=== PATIENT | male | born 1950 | race Caucasian/White ===

== ENCOUNTER 2018-12-30 07:03 | Day surgery (SDC) | payer MEDICARE, OTHER ==
[~2018-12-30] VITALS: Ht 182.9 cm; Wt 93.9 kg
[~2018-12-30 07:03] MED LIST: AMLO5CAP34 PO; ASPI81TA85 PO; ATOR40TA75 PO; IBUP80TA PO; NS 1,000 ML IV ONE; propofoL 200 MG/20 ML VIAL As Ordered ONE
--- NOTE | 2018-12-30 08:44 | ROOR ---
Patient Name: Aureliano Mcdonald Procedure Date: 12/30/2018 8:01 AM Date of : 1950 Age: 68 Room: [facility] Gender: Male Note Status: Finalized Procedure: Total Colonoscopy to Cecum + Cold Snare Polypectomy + Hemoclips Indications: High risk colon cancer surveillance: Personal history of colonic polyps, Last colonoscopy: 2008 Providers: Gilmer Shah MD Referring MD: QUINTON CASTELLANO JR, MD Requesting Provider: Medicines: Monitored Anesthesia Care Complications: No immediate complications. Procedure: Pre-Anesthesia Assessment: - The heart rate, respiratory rate, oxygen saturations, blood pressure, adequacy of pulmonary ventilation, and response to care were monitored throughout the procedure. The Colonoscope was introduced through the anus and advanced to the cecum, identified by appendiceal orifice and ileocecal valve. The colonoscopy was performed without difficulty. The patient tolerated the procedure well. The quality of the bowel preparation was excellent. Findings: The perianal and digital rectal examinations were normal. Non-bleeding internal hemorrhoids were found during retroflexion. The hemorrhoids were small and Grade I (internal hemorrhoids that do not prolapse). Two sessile polyps were found in the transverse colon. The polyps were medium in size. These polyps were removed with a cold snare. Resection and retrieval were complete. To prevent bleeding after the polypectomy, three hemostatic clips were successfully placed (MR conditional). There was no bleeding at the end of the procedure. The exam was otherwise without abnormality. Impression: - Non-bleeding internal hemorrhoids. - Two medium polyps in the transverse colon, removed with a cold snare. Resected and retrieved. Clips (MR conditional) were placed. - The examination was otherwise normal. - The exam was otherwise normal to the cecum. Recommendation: - Patient has a contact number available for emergencies. The signs and symptoms of potential delayed complications were discussed with the patient. Return to normal activities tomorrow. Written discharge instructions were provided to the patient. - Discharge patient to home. - Continue present medications. - Await pathology results. - Telephone GI clinic for pathology results in 1 week. - Repeat colonoscopy for surveillance based on pathology results. - Return to referring physician. - The findings and recommendations were discussed with the patient's family. Gilmer Shah MD Gilmer Shah MD 12/30/2018 8:43:56 AM Electronically signed by Gilmer Shah MD Number of Addenda: 0 Note Initiated On: 12/30/2018 8:01 AM Estimated Blood Loss: Estimated blood loss: none.
[2018-12-30 09:05] VITALS: BP 165/95
[2019-04-02] MEDS ORDERED: FISH1000 PO (08:44)
[2019-04-02] MEDS ORDERED: SILD100T PO (08:44)
== END 2018-12-30 09:29 | disposition home or self-care (01) ==
LOC: M OPP 07:03
PROVIDERS: ATTEND Internal Medicine Gastroenterology
DX: D12.3 Benign neoplasm of transverse colon (principal); K64.0 First degree hemorrhoids; Z86.010 Personal history of colon polyps

== ENCOUNTER → 2019-01-27 | Outpatient (CLI) | payer MEDICARE, OTHER ==
[~2019-01-27] MED LIST changes: +LIQUID POLIBAR PLUS 105% w/v 1900ML BTL As Ordered ONE; -NS 1,000 ML IV ONE; -propofoL 200 MG/20 ML VIAL As Ordered ONE
--- NOTE | 2019-02-11 10:41 | REP ---
Examination Requested: Barium and Air contrast Reason For Exam: History of colonic polyps The procedure was performed by PHIL Fleming, under the direct supervision of Dr. Pedroza. The images were reviewed with Dr. Pedroza. The wrapping machine operator film shows no organomegaly, or pathological masses. The intestinal gas pattern is unremarkable. Liquid barium and air were instilled into the colon and retrograde flow of the barium air mixture. The colon is normal in position and contour. There is a nonobstructed loop of the sigmoid colon that descends inferior to the rectum most likely into the left scrotum . Postradiation bulla is unremarkable throughout. There is free flow of contrast to the cecum. There is reflux into the terminal ileum. The colonic mucosal pattern is normal in course and caliber. There is no annular constricting lesion identified. There are no polypoid masses identified. There is a 20 2 x 4 mm small linear foreign body within the lumen of the transverse colon of unknown etiology. Correlation with an abdominal x-ray and 3-5 days may be considered for resolution of foreign body. Impression: 1. Nonobstructive hernia of a loop of sigmoid colon into the left scrotum. 2. 22 x 4 mm linear foreign body, follow up abdominal x-ray may be considered for resolution. 1.1 minutes of fluoroscopy time was utilized for this procedure. Some fluoroscopic images are performed with last image hold technology. These images require no additional radiation. Reviewed by Liberty Alcocer, PHIL 01/27/2019 03:43 P Electronically Signed by Viet Pedroza MD 02/11/2019 10:32 A
== END ==
LOC: M RAD 10:19
PROVIDERS: ATTEND Internal Medicine Gastroenterology
DX: K46.9 Unspecified abdominal hernia without obstruction or gangrene (principal); Z86.010 Personal history of colon polyps

== ENCOUNTER 2019-04-16 12:09 | Day surgery (SDC) | payer MEDICARE, OTHER ==
[~2019-04-16] VITALS: Ht 188 cm; Wt 95.3 kg
[~2019-04-16 12:09] MED LIST changes: +FISH1000 PO; -LIQUID POLIBAR PLUS 105% w/v 1900ML BTL As Ordered ONE; +LR 1,000 ML IV ONE; +SILD100T PO; +ceFAZolin SOD 2 GM in IV 1 EA IV ONE
[2019-04-16] MEDS ORDERED: BUPIVACAINE/EPIN 0.25% 30 ML VIAL As Ordered ONE (14:07)
[2019-04-16] MEDS ORDERED: MIDAZOLAM INJ 2 MG/2 ML VIAL (J2250) As Ordered ONE (14:18)
[2019-04-16] MEDS ORDERED: LIDOCAINE 2% INJ 100 MG/5 ML SDV (FOR ANES.) As Ordered ONE (14:18)
[2019-04-16] MEDS ORDERED: ROCURONIUM BROMIDE 50 MG/5 ML VIAL As Ordered ONE (14:18)
[2019-04-16] MEDS ORDERED: fentaNYL 250 MCG/5 ML INJECTION (J3010) As Ordered ONE (14:18)
[2019-04-16] MEDS ORDERED: propofoL 200 MG/20 ML VIAL As Ordered ONE (14:18)
[2019-04-16] MEDS ORDERED: LACRILUBE (AKWA TEARS) OPHTH OINT 3.5 GM As Ordered ONE (14:57)
[2019-04-16] MEDS ORDERED: LABETALOL HCL 100 MG/20 ML VIAL As Ordered ONE (15:37)
[2019-04-16] MEDS ORDERED: ONDANSETRON 4MG/2ML VIAL (J2405) As Ordered ONE (15:52)
[2019-04-16] MEDS ORDERED: dexameTHASONE 4 MG/ML 1ML VIAL (J1100) As Ordered ONE (15:53)
[2019-04-16] MEDS ORDERED: ACETAMINOPHEN 1000MG 100ML IV BTL (OFIRMEV) (J0131 PER 10MG) As Ordered ONE (15:53)
[2019-04-16] MEDS ORDERED: KETOROLAC 60 MG/2 ML VIAL (J1885) As Ordered ONE (15:53)
[2019-04-16] MEDS ORDERED: SUGAMMADEX SODIUM 500 MG/5 ML VIAL (BRIDION) As Ordered ONE (16:09)
[2019-04-16] MEDS ORDERED: fentaNYL 100 MCG/2 ML INJECTION (J3010) As Ordered ONE (16:40)
[2019-04-16] MEDS ORDERED: ONDANSETRON 4MG/2ML VIAL (J2405) IV PRN (17:00)
[2019-04-16] MEDS ORDERED: fentaNYL 100 MCG/2 ML INJECTION (J3010) IV PRN (17:00)
[2019-04-16] MEDS ORDERED: LR 1,000 ML IV SCH (17:00)
[2019-04-16] MEDS: NORCO, ANEXSIA 5/325MG TABLET (HYDROcodone/ACETAMINOPHEN) PO PRN ×2 (17:20→17:50)
[2019-04-16] MEDS ORDERED: NORCO, ANEXSIA 5/325MG TABLET (HYDROcodone/ACETAMINOPHEN) PO PRN (18:01)
[2019-04-16 19:00] VITALS: BP 168/84
--- NOTE | 2019-04-19 13:48 | RO ---
DATE OF PROCEDURE: 04/16/2019 PREOPERATIVE DIAGNOSIS: Incarcerated left inguinal hernia. POSTOPERATIVE DIAGNOSIS: Incarcerated left inguinal hernia. PROCEDURE: Robotic incarcerated left inguinal repair. SURGEON: Otto Tucker DO AWNING INSTALLER: None. ANESTHESIA: General. ESTIMATED BLOOD LOSS: 5 mL. COMPLICATIONS: None. INDICATION FOR THE PROCEDURE: The patient is a 69-year-old male who presents with a large left inguinal hernia including the entire sigmoid colon within it. The recommendation was to proceed with robotic repair. Risks and benefits of the procedure not limited to, but including bleeding, infection, hernia recurrence, hernia formation, damage to surrounding structure need for further surgery were discussed in detail with the patient. Informed consent was obtained and procedure was planned. PROCEDURE: The patient was brought back to operating room 7. After sufficient sedation, the abdomen was sterilely prepped and draped. Next, a time out was done to confirm proper patient and proper procedure. Following that, an 8 mm supraumbilical midline incision was made and a Veress needle was used to gain access to the abdomen. Once the abdomen was insufflated, the Veress needle was removed and an 8 mm OptiView port was used to gain access to the abdomen. Once the abdomen was entered, two more 8 mm ports were placed, one on the left and right midabdomen. The robot was then connected to the ports. Next, from the console the abdomen was examined. The entire sigmoid colon was in the left hernia sac. This was carefully reduced using some sharp dissection and some cautery to dissect some of the adhesions of the sigmoid colon to the pelvis in the left lower quadrant as well. Once this was completely reduced, I was able to make an incision into the peritoneum on the left lower quadrant and the peritoneal surface was then dissected free circumferentially around the hernia sac. Once the hernia sac was completely reduced it was dissected posteriorly and medially. Once that was completed, a Bard 3DMax light medium mesh was placed in the preperitoneal space, sutured towards the pubic symphysis into some scar tissue from his previous prostatectomy using a #2-0 Vicryl. The peritoneum was then closed with a #2-0 V-Loc suture encompassing the large redundant hernia sac within the suture repair. Once this was completed, the abdomen was desufflated. Skin incisions closed with #4-0 Vicryl subcuticular sutures. The abdomen was cleaned and dried. Steri-Strips, 4x4 and tape were applied thus ending procedure.
== END 2019-04-16 19:05 | disposition home or self-care (01) ==
LOC: M SDC 12:09
PROVIDERS: ATTEND Surgery
DX: K40.30 Unilateral inguinal hernia, with obstruction, without gangrene, not specified as recurrent (principal); I10 Essential (primary) hypertension; E78.5 Hyperlipidemia, unspecified; Z85.46 Personal history of malignant neoplasm of prostate; M54.5 Low back pain; Z88.1 Allergy status to other antibiotic agents; Z79.899 Other long term (current) drug therapy
CPT/HCPCS: 49650; C1781; J0131; J0690; J1100; J1885; J2250; J2405; J3010

== ENCOUNTER → 2021-05-07 | Outpatient (CLI) | payer MEDICARE, OTHER ==
[~2021-05-07] MED LIST changes: -ASPI81TA85 PO; +ASPI81TA86 PO; +ECOT81TA5 PO; +LOTR5CAP2 PO; -LR 1,000 ML IV ONE; -ceFAZolin SOD 2 GM in IV 1 EA IV ONE
== END ==
LOC: M LABSMTC 09:46
PROVIDERS: ATTEND Anesthesiology
DX: Z01.818 Encounter for other preprocedural examination (principal); Z11.52 Encounter for screening for COVID-19

== ENCOUNTER 2021-05-11 11:15 | Day surgery (SDC) | payer MEDICARE, OTHER ==
[~2021-05-11] VITALS: Ht 185.4 cm; Wt 94.8 kg
[~2021-05-11 11:15] MED LIST changes: +NS 1,000 ML IV ONE
--- OUTSIDE RECORDS SUMMARY | 2021-05-11 11:22 | CCD | Continuity of Care Document ---
Author Author Aureliano Cope MD Organization Unknown Address [address] [facility] [address] [place] [address] Phone [phone] Care Team Providers Care Plywood Layup Line Core Layer Name Role Phone Marty Cope JR, MD AUTM Unavailable Eze Ely MD AUTM [phone] Dariel Warren MD AUTM [phone] Damien Frye AUTM Unavailable Sharad Jorge MD AUTM [phone] Problems Active Problems Provider Date Osteoarthritis Marty Cope MD Onset: 04/01/2011 Pure hypercholesterolemia Marty Cope MD Onset: 04/01 Impotence of organic origin Marty Cope MD Onset: 11/2010 Benign prostatic hyperplasia without outflow obstruction Col breannasilas Cope MD Onset: 04/01/2011 Right bundle branch block Marty Cope MD Onset: 04/01 Essential hypertension Marty Cope MD Onset: 04/01/20 11 Impotence of organic origin Marty Cope MD Onset: Type 2 diabetes mellitus Marty Cope MD Onset: 2018 Erectile dysfunction following radical prostatectomy Marty Cope MD Onset: 07/10/2020 Social History Type Date Description Comments Sex Unknown ETOH Use Currently consumes alcohol 10-12 alcoholic beverages in an average week Tobacco Use Start: Unknown End: Unknown Patient is a former smoker SMOKED FOR 15YRS 1/2 DOMINICK A DAY Allergies, Adverse Reactions, Alerts Active Allergies Reaction Severity Comments Date Cipro muscle stiffness could not w alk 09/16/2018 Inactive Allergies NKDA 07/12/2010 Medications Active Medications SIG Qnty Indications Ordering Provide r Date Amlodipine Besylate/Benazepril Hydrochlo ride 5-10mg Capsules take one capsule by mouth every day 90caps Marty Cope MD 06/06/2019 Ibuprofen 800mg Tablets Take One Tablet By Mouth Three Times Daily as Needed 90tabs Marty fischer MD 12/23/2018 Atorvastatin Calcium 40mg Tablets take one tablet by mouth every day 90tabs Marty Cope MD 09/15/2017 Viagra 100mg Tablets as direc chula 10tabs Marty Cope MD 02/05/2011 Aspir-[address] 1 po qd 100tabs Marty Cope MD 01/11/2010 Fish Oil 1000mg Capsules 1 by mouth every day Unknown Medications Administered in Office Medication SIG Qnty Indications Ordering Provider Date Immunization Adminstration,1 Vaccine/Tox oid Injection Marty Cope MD 2020 Covid-19 vaccine, Unspecified Inj ection Unknown 10/03/2020 Covid-19 vaccine, Unspecified Inj ection Unknown 09/05/2020 Administration Of Flu Vaccine Inj ection Marty Cope MD 05/25/2015 Immunizations CPT Code Status Date Vaccine Lot # [id number] Given 01/16/2021 Adacel- Tetanus Diphtheria P ertussis (Age64 & Under) [id number] U-Flu Given 05/02/2020 Influenza,Unspecified 21662 Given 08/30/2019 Shingrix Zoster Vaccine (HZV), Recombinant, Subunit, Adjuvanted U-Flu Given 05/16/2019 Influenza,Unspecified 61410 Given 10/03/2018 Shingrix Zoster Vaccine (HZV), Recombinant, Subunit, Adjuvanted U-Flu Given 05/09/2018 Influenza,Unspecified 13517 Given 09/04/2016 Pneumovax 23 [id number] Q2037 Given 05/25/2015 Fluvirin Virus Vaccine [id number] Q2037 Given 05/12/2014 Fluvirin Virus Vaccine 54313 01 94086 Given 02/10/2012 Zoster Vaccine [id number] Q2037 Given 05/30/2011 Fluvirin Virus Vaccine 92368 Given 07/12/2010 Influenza Virus Vaccine 19389 Given 05/23/2009 Influenza Virus Vaccine Vital Signs Date Vital Result Comment 01/16/2021 9:59am BP Systolic 140 mmHg BP Diastolic 88 mmHg Height 71 inches 5'11" Weight 211.12 lb BMI (Body Mass Index) 29.4 kg/m2 07/10/2020 3:22pm BP Systolic 134 mmHg BP Diastolic 78 mmHg Heart Rate 72 /min Height 71 inches 5'11" Weight 215.00 lb BMI (Body Mass Index) 30.0 kg/m2 Results Test Acquired Date Facility Test Result H/L Range Note Complete Blood Count 01/16/2021 [facility] Receiving Distribution Station Operator: [place] [address] [phone] WBC 5.0 x10*3/UL 4.1 - 10.9 RBC 4.85 x10*6/UL 4.20 - 6.30 Hemoglobin 16.6 g/dL 12.0 - 18.0 Hematocrit 48.8 % 37.0 - 51.0 MCV 100.5 fL High 80.0 - 97.0 MCH 34.2 pg High 26.0 - 32.0 MCHC 34.0 g/dL 31.0 - 38.0 RDW 13.6 % 11.6 - 13.7 PLT 217 x10*3/UL 140 - 440 MPV 7.8 FL 7.8 - 11.0 Lymph % 18.8 % 10.0 - 58.5 Mid % 5.1 % 1.7 - 9.3 Neut % 76.1 % 37.0 - 92.0 Lymph # 0.9 x10*3/UL 0.6 - 4.1 Mid # 0.3 x10*3/UL 0.1 - 0.6 Neut # 3.8 x10*3/UL 2.0 - 7.8 A1c 01/16/2021 [facility] Receiving Distribution Station Operator: [place] [address] [phone] Hba1c 6.4 % High <5.7 1 Est Avg Glucose 137 mg/dL High 60 - 110 Comprehensive Chem Profile 01/16/2021 [facility] Receiving Distribution Station Operator: [place] [address] [phone] Glucose 138 mg/dL High 74 - 99 2 BUN 17 mg/dL 7 - 18 Creatinine 1.0 mg/dL 0.6 - 1.3 Sodium 139 mEq/L 136 - 145 Potassium 4.7 mEq/L 3.5 - 5.1 Chloride 102 mEq/L 98 - 107 Carbon Dioxide 29 mEq/L 21 - 32 Calcium 9.5 mg/dL 8.5 - 10.1 Alk. Phosphatase 80 mg/dL 46 - 116 Total Bilirubin 0.6 mg/dL 0.2 - 1.0 Ast (Sgot) 44 U/L High 15 - 37 Alt (SGPT) 82 U/L High 12 - 78 Albumin 4.2 g/dL 3.4 - 5.0 Total Protein 7.4 g/dL 6.4 - 8.2 A/G Ratio 1.31 CALC 1.00 - 1.90 GFR >= 60 mL/min >60 GFR >= 60 mL/min >60 3 Lipid Profile 01/16/2021 [facility] Receiving Distribution Station Operator: Dr Marty Cope [place] [id number] [phone] Cholesterol 210 mg/dL High 131 - 200 Triglycerides 71 mg/dL 30 - 150 HDL Cholesterol 97 mg/dL High 35 - 60 LDL (Calculated) 99 CALC 50 - 159 1 Lab Result Notes: Pre-Diabetes 5.7 - 6.4 % Diabetes = or > 6.5% 2 100-125 mg/dL PRE-DIABET ES/FASTING >126 mg/dL DIABETES/FASTING 3 CHRONIC KIDNEY DISEASE STAGI NG PER NKF STAGE I & II GFR >= 60 NORMAL TO MILDLY DECREASED STAGE III GFR 30-59 MODERATELY DECREASED STAGE IV GFR 15-29 SEVERELY DECREASED STAGE V GFR <15 VERY LITTLE GFR LEFT ESRD GFR <15 ON BRIM BUSTER Procedures Date Code Description Status 01/16/2021 67843 Office/Outpatient Established Mo d MDM 30-39 Min Completed 10/26/2020 95374 Chronic Care MGMT 20 Mins Clinical Staff Time Per Calendar Month Completed 12/30/2018 [id number] Colonoscopy Completed 01/23/2015 [id number] Diabetic Retinal Eye Exam Comple chula 01/04/2009 [id number] Colonoscopy Completed Medical Devices Description No Information Available Encounters Type Date Location Provider Dx Diagnosis Office Visit 01/16/2021 10:20a [facility] Marty Cope MD I10 Essential (primary) hypertension E78.00 Pure hypercholesterolemia, u nspecified Z86.010 Personal history of colonic polyps Z85.46 Personal history of malignan t neoplasm of prostate R94.5 Abnormal results of liver fu nction studies N52.31 Erectile dysfunction followi ng radical prostatectomy E11.9 Type 2 diabetes mellitus wit hout complications E66.3 Overweight Z68.29 Body mass index [BMI] 29.0-2 9.9, adult Z23 Encounter for immunization Z13.89 Encounter for screening for other disorder Assessments Date Code Description Provider 01/16/2021 I10 Essential (primary) hypertension Marty Cope MD 01/16/2021 E78.00 Pure hypercholesterolemia, unspe cified Marty Cope MD 01/16/2021 Z86.010 Personal history of colonic poly ps Marty Cope MD 01/16/2021 Z85.46 Personal history of malignant ne oplasm of prostate Marty Cope MD 01/16/2021 R94.5 Abnormal results of liver functi on studies Marty Cope MD 01/16/2021 N52.31 Erectile dysfunction following r adical prostatectomy Marty Cope MD 01/16/2021 E11.9 Type 2 diabetes mellitus without complications Marty Cope MD 01/16/2021 E66.3 Overweight Marty diane MD 01/16/2021 Z68.29 Body mass index [BMI] 29.0-29.9, adult Marty Cope MD 01/16/2021 Z23 Encounter for immunization Colli milton Cope MD 01/16/2021 Z13.89 Encounter for screening for othe r disorder Marty Cope MD 10/26/2020 I10 Essential (primary) hypertension Marty Cope MD 10/26/2020 E78.00 Pure hypercholesterolemia, unspe cified Marty Cope MD 10/26/2020 E11.9 Type 2 diabetes mellitus without complications Marty Cope MD Plan of Treatment Future Appointment(s):* 07/17/2021 9:40 am - Marty Cope MD at [facility] 01/16/2021 - Marty Cope MD* I10 Essential (primary) hypertension* Comments:* Hypertension at [facility]-8 guidelines * E78.00 Pure hypercholesterolemia, unspecified * Z86.010 Personal history of colonic polyps * Z85.46 Personal history of malignant neoplasm of prostate * R94.5 Abnormal results of liver function studies * N52.31 Erectile dysfunction following radical prostatectomy * E11.9 Type 2 diabetes mellitus without complications * E66.3 Overweight * Z68.29 Body mass index [BMI] 29.0-29.9, adult * Z23 Encounter for immunization * Z13.89 Encounter for screening for other disorder * All * Comments:* 10. Right sided sciatica. No neurological focality. No issues with bowel or bladder. Discussed with him considering Physical therapy, possible Orthopedic referral with Dr. Eli or [facility]. He is not ready for either and he wants to do the back exercises which he has been shown Functional Status Description No Information Available Mental Status Description No Information Available Referrals Refer to Reason for Referral Status Appt Date Gilmer Shah MD CONSULT FOR SCREENING COLONOSCOPY Tony jackie Notified 03/20/[address] [place] [address] [phone]
--- OUTSIDE RECORDS SUMMARY | 2021-05-11 11:22 | CCD | Continuity of Care Document ---
Author Author Aureliano SHAH M.D. Organization Unknown Address [address] [place] [address] Phone [phone] Care Team Providers Care Call Or Contact Centre Team Leader Name Role Phone Marty Cope M.D. AUTM [phone] Problems Active Problems Provider Date Screening for malignant neoplasm of colon Gilmer barreto M.D. Onset: 12/03/2018 Social History Type Date Description Comments Sex Unknown ETOH Use Occasionally Tobacco Use Start: Unknown End: Unknown Patient is a former smoker QUIT 1983 Allergies, Adverse Reactions, Alerts Active Allergies Criticality Reaction | Severity Comments Date Cipro Unable to assess criticality 12/03/2018 Medications Active Medications SIG Qnty Indications Ordering Provide r Date Sutab [id number] Tablets as directed 1box Gilmer hSah M.D. 03/20/2021 Amlodipine Besylate/Benazepril Hydrochlo ride 5-10mg Capsules Take One Capsule By Mouth Every Day as Directed Unknown Atorvastatin Calcium 40mg Tablets Take One Tablet By Mouth Every Day as Directed Unknown Ibuprofen 800mg Tablets Take One Tablet By Mouth Three Times Daily as Needed For Pain Unkno wn Aspirin Low Dose 81mg Tablets DR Unknown Sildenafil Citrate 100mg Tablets Unknown Fish Oil 1200mg Capsules Unknown Immunizations Description No Information Available Vital Signs Date Vital Result Comment 03/20/2021 10:21am Height 73 inches 6'1" Weight 212.00 lb BP Systolic 130 mmHg BP Diastolic 82 mmHg Heart Rate 75 /min BMI (Body Mass Index) 28.0 kg/m2 Weight 96.163 kg Body Temperature 97.3 F 03/07/2020 12:07pm Height 73.5 inches 6'1.50" Weight 212.00 lb Temp 97.0 BP Systolic 139 mmHg BP Diastolic 89 mmHg Heart Rate 77 /min BMI (Body Mass Index) 27.6 kg/m2 Weight 96.163 kg Results Description No Information Available Procedures Date Code Description Status 03/20/2021 78641 Office/Outpatient New Low MDM 30 -44 Minutes Completed Medical Devices Description No Information Available Encounters Type Date Location Provider Dx Diagnosis Office Visit 03/20/2021 10:00a Main Office Gilmer Shah M.D. Z 86.010 Personal history of colonic polyps Assessments Date Code Description Provider 03/20/2021 Z86.010 Personal history of colonic poly ps Gilmer Shah M.D. Plan of Treatment Future Appointment(s):* 05/11/2021 12:00 pm - Gilmer Shah M.D. at Main Office 03/20/2021 - Gilmer Shah M.D.* Z86.010 Personal history of colonic polyps* Comments:* 71 yo wm who presents for a colonoscopy due to a h/o colonic polyps. Last scope was in 2019. No c/o abdominal pain, weight loss, change in bowel habits, or rectal bleeding. No family h/o colon cancer. No h/o chest pain, or sob. Plan:1.Schedule patient for Colonoscopy. 2. Informed consent given.3. Advised to stop asa, plavix,and anticoagulation 3 to 7 days prior to the procedures. Functional Status Description No Information Available Mental Status Description No Information Available Referrals Description No Information Available
--- OUTSIDE RECORDS SUMMARY | 2021-05-11 11:22 | CCD ---
Author Author [facility] Organization [facility] Address Unknown Phone Unavailable Care Team Providers Care Beater Boss Name Role Phone Mehul Shah MD Unavailable Unavailable Mehul Shah MD Unavailable Unavailable Mehul Shah MD Unavailable Unavailable Mehul Shah MD Unavailable Unavailable Mehul Shah MD Unavailable Unavailable Mehul Shah MD Unavailable Unavailable Mehul Shah MD Unavailable Unavailable Mehul Shah MD Unavailable Unavailable Mehul Shah MD Unavailable Unavailable Mehul Shah MD Unavailable Unavailable Mehul Shah MD Unavailable Unavailable Mehul Shah MD Unavailable Unavailable Mehul Shah MD Unavailable Unavailable Mehul Shah MD Unavailable Unavailable Mehul Shah MD Unavailable Unavailable Mehul Shah MD Unavailable Unavailable Mehul Shah MD Unavailable Unavailable Mehul Shah MD Unavailable Unavailable Mehul Shah MD Unavailable Unavailable Mehul Shah MD Unavailable Unavailable Mehul Shah MD Unavailable Unavailable Mehul Shah MD Unavailable Unavailable Mehul Shah MD Unavailable Unavailable Mehul Shah MD Unavailable Unavailable Mehul Shah MD Unavailable Unavailable Mehul Shah MD Unavailable Unavailable Mehul Shah MD Unavailable Unavailable Mehul Shah MD Unavailable Unavailable Mehul Shah MD Unavailable Unavailable Mehul Shah MD Unavailable Unavailable Mehul Shah MD Unavailable Unavailable Mehul Shah MD Unavailable Unavailable Mehul Shah MD Unavailable Unavailable Mehul Shah MD Unavailable Unavailable Mehul Shah MD Unavailable Unavailable Mehul Shah MD Unavailable Unavailable Mehul Shah MD Unavailable Unavailable Mehul Shah MD Unavailable Unavailable Mehul Shah MD Unavailable Unavailable Mehul Shah MD Unavailable Unavailable Mehul Shah MD Unavailable Unavailable Mehul Shah MD Unavailable Unavailable Mehul Shah MD Unavailable Unavailable Mehul Shah MD Unavailable Unavailable Mehul Shah MD Unavailable Unavailable Mehul Shah MD Unavailable Unavailable Mehul Shah MD Unavailable Unavailable Mehul Shah MD Unavailable Unavailable Mehul Shah MD Unavailable Unavailable Mehul Shah MD Unavailable Unavailable Jahaira Cope MD Unavailable Unavailable Jahaira Cope MD Unavailable Unavailable AnatoliyJahaira bautista MD Unavailable Unavailable SherwoodJahaira bautista MD Unavailable Unavailable SherwoodJahaira bautista MD Unavailable Unavailable AnatoliyJahaira bautista MD Unavailable Unavailable AnatoliyJahaira bautista MD Unavailable Unavailable Jahaira Cope MD Unavailable Unavailable Jahaira Cope MD Unavailable Unavailable Jahaira Cope MD Unavailable Unavailable Jahaira Cope MD Unavailable Unavailable Jahaira Cope MD Unavailable Unavailable Jahaira Cope MD Unavailable Unavailable Jahaira Cope MD Unavailable Unavailable Jahaira Cope MD Unavailable Unavailable Jahaira Cope MD Unavailable Unavailable Jahaira Cope MD Unavailable Unavailable AnatoliyJahaira bautista MD Unavailable Unavailable SherwoodJahaira bautista MD Unavailable Unavailable SherwoodJahaira bautisat MD Unavailable Unavailable SherwoodJahaira bautista MD Unavailable Unavailable AnatoliyJahaira bautitsa MD Unavailable Unavailable AnatoliyJahaira bautista MD Unavailable Unavailable AnatoliyJahaira bautista MD Unavailable Unavailable AnatoliyJahaira bautista MD Unavailable Unavailable SherwoodJahaira bautista MD Unavailable Unavailable SherwoodJahaira bautista MD Unavailable Unavailable AnatoliyJahaira bautista MD Unavailable Unavailable AnatoliyJahaira bautista MD Unavailable Unavailable SherwoodJahaira bautista MD Unavailable Unavailable AnatoliyJahaira bautista MD Unavailable Unavailable AnatoliyJahaira bautista MD Unavailable Unavailable AnatoliyJahaira bautista MD Unavailable Unavailable AnatoliyJahaira bautista MD Unavailable Unavailable SherwoodJahaira bautista MD Unavailable Unavailable AnatoliyJahaira MD Unavailable Unavailable SherwoodJahaira MD Unavailable Unavailable AnatoliyJahaira MD Unavailable Unavailable SherwoodJahaira MD Unavailable Unavailable SherwoodJahaira MD Unavailable Unavailable SherwoodJahaira MD Unavailable Unavailable AnatoliyJahaira MD Unavailable Unavailable AnatoliyJahaira MD Unavailable Unavailable SherwoodJahaira MD Unavailable Unavailable SherwoodJahaira MD Unavailable Unavailable SherwoodJahaira MD Unavailable Unavailable SherwoodJahaira MD Unavailable Unavailable SherwoodJahaira MD Unavailable Unavailable SherwoodJahaira MD Unavailable Unavailable AnatoliyJahiara MD Unavailable Unavailable SherwoodJahaira MD Unavailable Unavailable SherwoodJahaira MD Unavailable Unavailable AnatoliyJahaira MD Unavailable Unavailable AnatoliyJahaira MD Unavailable Unavailable AnatoliyJahaira MD Unavailable Unavailable AnatoliyJahaira MD Unavailable Unavailable AnatoliyJahaira MD Unavailable Unavailable SherwoodJahaira MD Unavailable Unavailable AnatoliyJahaira MD Unavailable Unavailable SherwoodJahaira MD Unavailable Unavailable SherwoodJahaira MD Unavailable Unavailable SherwoodJahaira MD Unavailable Unavailable AnatoliyJahaira bautista MD Unavailable Unavailable SherwoodJahaira bautista MD Unavailable Unavailable AnatoliyJahaira bautista MD Unavailable Unavailable AnatoliyJahaira MD Unavailable Unavailable AnatoliyJahaira MD Unavailable Unavailable AnatoliyJahaira MD Unavailable Unavailable AnatoliyJahaira bautista MD Unavailable Unavailable SherwoodJahaira bautista MD Unavailable Unavailable AnatoliyJahaira bautista MD Unavailable Unavailable SherwoodJahaira bautista MD Unavailable Unavailable SherwoodJahaira bautista MD Unavailable Unavailable AnatoliyJahaira bautista MD Unavailable Unavailable SherwoodJahaira bautista MD Unavailable Unavailable SherwoodJahaira bautista MD Unavailable Unavailable SherwoodJahaira bautista MD Unavailable Unavailable SherwoodJahaira bautista MD Unavailable Unavailable AnatoliyJahaira bautista MD Unavailable Unavailable AnatoliyJahaira MD Unavailable Unavailable AnatoliyJahaira MD Unavailable Unavailable SherwoodJahaira MD Unavailable Unavailable AnatoliyJahaira MD Unavailable Unavailable SherwoodJahaira MD Unavailable Unavailable AnatoliyJahaira bautista MD Unavailable Unavailable AnatoliyJahaira bautista MD Unavailable Unavailable Christopher, S Lexx RPA Unavailable Unavailable White, S Lexx RPA Unavailable Unavailable White, S Lexx RPA Unavailable Unavailable White, S Lexx RPA Unavailable Unavailable White, S Lexx RPA Unavailable Unavailable White, S Lexx RPA Unavailable Unavailable White, S Lexx RPA Unavailable Unavailable White, S Lexx RPA Unavailable Unavailable White, S Lexx RPA Unavailable Unavailable White, S Lexx RPA Unavailable Unavailable White, S Lexx RPA Unavailable Unavailable White, S Lexx RPA Unavailable Unavailable White, S Lexx RPA Unavailable Unavailable White, S Lexx RPA Unavailable Unavailable White, S Lexx RPA Unavailable Unavailable White, S Lexx RPA Unavailable Unavailable White, S Lexx RPA Unavailable Unavailable White, S Lexx RPA Unavailable Unavailable White, S Lexx RPA Unavailable Unavailable White, S Lexx RPA Unavailable Unavailable White, S Lexx RPA Unavailable Unavailable White, S Lexx RPA Unavailable Unavailable White, S Lexx RPA Unavailable Unavailable White, S Lexx RPA Unavailable Unavailable White, S Elxx RPA Unavailable Unavailable White, S Lexx RPA Unavailable Unavailable White, S Lexx RPA Unavailable Unavailable White, S Lexx RPA Unavailable Unavailable White, S Lexx RPA Unavailable Unavailable White, S Lexx RPA Unavailable Unavailable White, S Lexx RPA Unavailable Unavailable White, S Lexx RPA Unavailable Unavailable White, S Lexx RPA Unavailable Unavailable White, S Lexx RPA Unavailable Unavailable White, S Lexx RPA Unavailable Unavailable White, S Lexx RPA Unavailable Unavailable White, S Lexx RPA Unavailable Unavailable White, S Lexx RPA Unavailable Unavailable White, S Lexx RPA Unavailable Unavailable White, S Lexx RPA Unavailable Unavailable White, S Lexx RPA Unavailable Unavailable White, S Lexx RPA Unavailable Unavailable White, S Lexx RPA Unavailable Unavailable White, S Lexx RPA Unavailable Unavailable White, S Lexx RPA Unavailable Unavailable White, S Lexx RPA Unavailable Unavailable White, S Lexx RPA Unavailable Unavailable White, S Lexx RPA Unavailable Unavailable White, S Lexx RPA Unavailable Unavailable White, S Lexx RPA Unavailable Unavailable White, S Lexx RPA Unavailable Unavailable White, S Lexx RPA Unavailable Unavailable White, S Lexx RPA Unavailable Unavailable White, S Lexx RPA Unavailable Unavailable White, S Lexx RPA Unavailable Unavailable White, S Lexx RPA Unavailable Unavailable White, S Lexx RPA Unavailable Unavailable White, S Lexx RPA Unavailable Unavailable White, S Lexx RPA Unavailable Unavailable White, S Lexx RPA Unavailable Unavailable White, S Lexx RPA Unavailable Unavailable White, S Lexx RPA Unavailable Unavailable White, S Lexx RPA Unavailable Unavailable White, S Lexx RPA Unavailable Unavailable Re-disclosure Warning The records that you are about to access may contain information from federally-assisted alcohol or drug abuse programs. If such information is present, then the following federally mandated warning applies: This information has been disclosed to you from records protected by federal confidentiality rules (42 CFR part 2). The federal rules prohibit you from making any further disclosure of this information unless further disclosure is expressly permitted by the written consent of the person to whom it pertains or as otherwise permitted by 42 CFR part 2. A general authorization for the release of medical or other information is NOT sufficient for this purpose. The Federal rules restrict any use of the information to criminally investigate or prosecute any alcohol or drug abuse patient.The records that you are about to access may contain highly sensitive health information, the redisclosure of which is protected by Article 27-F of the [facility] Public Health law. If you continue you may have access to information: Regarding HIV / AIDS; Provided by facilities licensed or operated by the [facility] Office of Mental Health; or Provided by the [facility] Office for People With Developmental Disabilities. If such information is present, then the following [facility] mandated warning applies: This information has been disclosed to you from confidential records which are protected by state law. State law prohibits you from making any further disclosure of this information without the specific written consent of the person to whom it pertains, or as otherwise permitted by law. Any unauthorized further disclosure in violation of state law may result in a fine or snf sentence or both. A general authorization for the release of medical or other information is NOT sufficient authorization for further disc losure. Family History Family Member Name Family Member Gender Family Member Status Date o f Status Description Data Source(s) Unknown Unknown Problem [facility] ([facility]) Unknown Female Problem [facility] ([facility] [place] Encounters Encounter Providers Location Date Indications Data Source(s ) Outpatient Attender: Gilmer Shah MD Main Office 03/20/2021 10:00:00 AM EDT [facility] ([facility]) Outpatient Attender: Marty Pearson 0 01/16/2021 10:20:00 AM EDT [facility] ([facility] ) Outpatient Attender: Lexx White RPA [place] 01/11/2021 11:30:00 AM EDT [facility] [place] Out[facility] Attender: Marty Pearson 1 09/10/2019 02:00:00 PM EST [facility] ([facility] ) Immunizations Vaccine Date Status Description Data Source(s) Tdap 01/16/2021 10:48:00 AM EDT completed M EDENT ([facility]) COVID-19 VACCINE Moderna 10/03/2020 12:00:00 AM EST completed [facility] Vaccine Series Complete: YESThis Data wa s Submitted to [facility]. COVID-19 VACCINE Moderna 09/05/2020 12:00:00 AM EST completed [facility] Vaccine Series Complete: NOThis Data was Submitted to [facility] [employer]. This CVX code allows reporting of a vacc ination when formulation is unknown (for example, when recording a Influenza vaccination when noted on a vaccination card) 05/02/2020 08:20:00 AM EDT completed MEDEN T ([facility]) Medications Medication Brand Name Start Date Product Form Dose Route Admi nistrative Instructions Pharmacy Instructions Status Indications Reaction Description Data Source(s) Sutab Sutab 03/20/2021 12:00:00 AM EDT active [facility] ([facility]) Immunization Adminstration,1 Vaccine/Toxoid 01/16/2021 12:00 :00 AM EDT completed [facility] ([facility]) Medication administered onsite sildenafil 100 MG Oral Tablet Sildenafil Citrate 01/11/2021 12:00:00 AM EDT ORAL active [facility] ([facility] [place]) Covid-19 vaccine, Unspecified 10/03/2020 12:00:00 AM EST completed [facility]) Medication administered onsite Covid-19 vaccine, Unspecified 09/05/2020 12:00:00 AM EST completed [facility]) Medication administered onsite Insurance Providers Payer name Policy type / Coverage type Policy ID Covered democrat ID Covered democrat's relationship to polo Policy Polo Plan Information Umr [place] Ppo Medigap Part B [id number] Self [id number] [place]/Umr (Old) Medigap Part B [id number] Self [id number] [place] Ppo Commercial [id number] Self [id number] POMCO [id number] SP [id number] POMCO [id number] SP [id number] Medicare Natl Govt Serv Medicare Primary [id number] Self [id number] Medicare Natl Govt Serv Medicare Primary [id number] Self Medicare Natl Govt Serv Medicare Primary [id number] Self [id number] Medicare Natl Govt Servic Medicare Primary [id number] Self [id number] [facility] [id number] SP [id number] Umr (New [place]) Medigap Part B [id number] Self [id number] Medicare Medicare Primary [id number] Self [place] Commercial Ppo [id number] Self Ppo POMCO O [id number] S [id number] POMCO O [id number] S [id number] POM[employer] PPO P [id number] S [id number] [place] Medigap Part B [id number] Self [id number] Umr Medigap Part B [id number] Self [id number] Medicare [place] Primary [id number] Self [id number] [place] Medigap Part B [id number] Self [id number] Umr Medigap Part B [id number] Self [id number] Medicare Medigap Part B [id number] Self [id number] Medicare Medicare Primary [id number] Self [id number] Medicare Medicare Primary [id number] Self [id number] MEDICARE [id number] SP [id number] Medicare Medicare Primary [id number] Self [id number] Medicare Medicare Primary [id number] Self [id number] Problems, Conditions, and Diagnoses Code Display Name Description Problem Type Effective Dates Data Source(s) N52.31 Erectile dysfunction following radical p rostatectomy Erectile dysfunction following radical prostatectomy Problem 07/10/2020 12:00:00 AM EST Irseal GARCIA ([facility]) Surgeries/Procedures Procedure Description Date Indications Data Source(s) OFFICE OUTPATIENT NEW 30 MINUTES 03/20/2021 12:00:00 A Isreal GUDINO ([facility]) OFFICE OUTPATIENT VISIT 25 MINUTES 01/16/2021 12:00:00 AM JOSE GUDINO ([facility]) Chronic Care MGMT 20 Mins Clinical Staff Time Per Calendar M [facility] 10/26/2020 12:00:00 AM JOSE [facility] ) Results ID Date Data Source [id number] 01/16/2021 10:49:00 AM EDT [facility] ([facility]) Name Value Range Interpretation Code Description Data Julissa rce(s) Supporting Document(s) Triglyceride [Mass/volume] in Serum or Plasma 71 mg/dL 30-150 [facility] ([facility]) Cholesterol [Mass/volume] in Serum or Plasma 210 mg/dL 131-200 [facility] ([facility]) Cholesterol in HDL [Mass/volume] in Serum or Plasma 97 mg/dL 35-60 [facility] ([facility]) Cholesterol in LDL [Mass/volume] in Serum or Plasma by calcu lation 99 CALC 50-159 [facility] ([facility]) ID Date Data Source [id number] 01/16/2021 10:49:00 AM EDT [facility] ([facility]) Name Value Range Interpretation Code Description Data Julissa rce(s) Supporting Document(s) Glucose [Mass/volume] in Serum or Plasma 138 mg/dL 74-99 [facility] ([facility]) 100-125 mg/dL PRE-DIABETES/FASTING >126 mg/dL DIABETES/FASTING Urea nitrogen [Mass/volume] in Serum or Plasma 17 mg/dL 7-18 [facility] ([facility]) Sodium [Moles/volume] in Serum or Plasma 139 meq/L 136-145 [facility] ([facility]) Creatinine 1.0 mg/dL 0.6-1.3 [facility] Potassium [Moles/volume] in Serum or Plasma 4.7 meq/L 3.5-5.1 [facility] ([facility]) Chloride [Moles/volume] in Serum or Plasma 102 meq/L 98-107 [facility] ([facility]) Carbon dioxide, total [Moles/volume] in Serum or Plasma 29 meq/L 21 -32 [facility] ([facility]) Calcium [Mass/volume] in Serum or Plasma 9.5 mg/dL 8.5-10.1 [facility] ([facility]) Alkaline phosphatase isoenzyme [Units/volume] in Serum or Pl asma 80 mg/dL 46-116 [facility] ([facility]) Total Bilirubin 0.6 mg/dL 0.2-1.0 [facility] Aspartate aminotransferase [Enzymatic activity/volume] in Serum or Plasma 44 U/L 15-37 [facility] Alanine aminotransferase [Enzymatic activity/volume] in Seru m or Plasma 82 U/L 12-78 [facility] ([facility]) Albumin [Mass/volume] in Serum or Plasma 4.2 g/dL 3.4-5.0 [facility] ([facility]) A/G Ratio 1.31 CALC 1.00-1.90 [facility] Proteinase 3 Ab [Units/volume] in Serum 7.4 g/dL 6.4-8.2 [facility] ([facility]) Glomerular filtration rate/1.73 sq M pre dicted among non-blacks [Volume Rate/Area] in Serum or Plasma by Creatinine-based formula (MDRD) Laboratory test result [facility] Glomerular filtration rate/1.73 sq M pre dicted among blacks [Volume Rate/Area] in Serum or Plasma by Creatinine-based formula (MDRD) Laboratory test result [facility] <content>CHRONIC KIDNEY DISEASE STAGING PER NKF</content>
<content></content>
<content>STAGE I & II GFR >= 60 NORMAL TO MILDLY DECREASED</content>
<content>STAGE III GFR 30-59 MODERATELY DECREASED</content>
<content>STAGE IV GFR 15-29 SEVERELY DECREASED</content>
<content>STAGE V GFR <15 VERY LITTLE GFR LEFT</content>
<content>ESRD GFR <15 ON CORPORATE LEARNING CONSULTANT</content>
<content></content> ID Date Data Source [id number] 01/16/2021 10:49:00 AM EDT [facility] ([facility]) Name Value Range Interpretation Code Description Data Julissa rce(s) Supporting Document(s) Hemoglobin A1c/Hemoglobin.total in Blood 6.4 % [facility] ([facility]) Lab Result Notes: Pre-Diabetes 5.7 - 6.4 % Diabetes = or > 6.5% Glucose mean value [Mass/volume] in Blood Estimated fr om glycated hemoglobin 137 mg/dL 60-110 [facility] ([facility] ) ID Date Data Source [id number] 01/16/2021 10:49:00 AM EDT [facility] ([facility]) Name Value Range Interpretation Code Description Data Julissa rce(s) Supporting Document(s) Leukocytes [#/volume] in Blood by Automated count 5.0 x10*3/UL 4.1-10 .9 [facility] ([facility]) Erythrocytes [#/volume] in Blood by Automated count 4.85 x10*6/UL 4.2 0-6.30 [facility] ([facility]) Hemoglobin [Mass/volume] in Blood 16.6 g/dL 12.0-18.0 [facility] ([facility]) MCV 100.5 fL 80.0-97.0 [facility] ([facility] Hematocrit [Volume Fraction] of Blood by Automated count 48.8 % 3 7.0-51.0 [facility] ([facility]) MCHC 34.0 g/dL 31.0-38.0 [facility] MCH 34.2 pg 26.0-32.0 [facility] ([facility]) Erythrocyte distribution width [Ratio] by Automated count 13.6 % 11.6-13.7 [facility] ([facility]) Platelets [#/volume] in Blood by Automated count 217 x10*3/UL 140-440 [facility] ([facility]) MPV 7.8 FL 7.8-11.0 [facility] Lymph % 18.8 % 10.0-58.5 [facility] Mid % 5.1 % 1.7-9.3 [facility] Neut % 76.1 % 37.0-92.0 [facility] Lymph # 0.9 x10*3/UL 0.6-4.1 [facility] ([facility]) Neut # 3.8 x10*3/UL 2.0-7.8 [facility] ([facility]) Mid # 0.3 x10*3/UL 0.1-0.6 [facility] ([facility]) ID Date Data Source [id number] 01/11/2021 11:36:00 AM EDT [facility] ([facility] Name Value Range Interpretation Code Description Data Julissa rce(s) Supporting Document(s) Glucose [Presence] in Urine 100 mg/dL [facility] ([facility]) Protein [Presence] in Urine by Test strip Laboratory test result [facility] ([facility]) Ua Nitrite Laboratory test result [facility] ([facility] Ua Leuko Laboratory test result [facility] ([facility]) Blood [Presence] in Urine by Visual Laboratory test result [facility] ([facility]) Color of Urine Laboratory test result [facility] ([facility]) Clarity of Urine Laboratory test result [facility] ([facility]) Ketones [Presence] in Urine by Test strip Laboratory test result [facility] ([facility]) Bilirubin.total [Presence] in Urine by Test strip Laboratory test res ult [facility] ([facility]) pH of Urine by Test strip 5.5 5.0-7.5 [facility] ([facility]) Ua Specific [place] 1.020 1.003-1.030 [facility] ([facility]) Urobilinogen [Mass/volume] in Urine by Test strip 0.2 E.U./dL 0.0-1.0 [facility] ([facility]) ID Date Data Source [id number] 12/28/2020 10:02:00 AM EDT [facility] ([facility]) Name Value Range Interpretation Code Description Data Julissa rce(s) Supporting Document(s) Prostate specific Ag [Mass/volume] in Serum or Plasma Labora tory test result 0.0-4.0 [facility] ([facility]) A courtesy copy of this report has been sent to the patient, ID Date Data Source [id number] 12/29/2020 08:09:00 AM EDT [facility] Name Value Range Interpretation Code Description Data Julissa rce(s) Supporting Document(s) Prostate Specific Ag, Serum 0.0-4.0 [facility] ECLIA methodology. According to th e [place] [employer], Serum PSA shoulddecrease and remain at undetectable levels after radicalprostatectomy. The AUA defines biochemical recurrence as an initialPSA value 0.2 ng/mL or greater followed by a subsequent confirmatoryPSA value 0.2 ng/mL or greater.Values obtained with different assay methods or kits cannot be usedinterchangeably. Results cannot be interpreted as absolute evidenceof the presence or absence of malignant disease. ID Date Data Source [id number] 08/08/2020 08:12:00 AM EST [facility] ([facility]) Name Value Range Interpretation Code Description Data Julissa rce(s) Supporting Document(s) Alkaline phosphatase isoenzyme [Units/volume] in Serum or Pl asma 85 mg/dL 46-116 [facility] ([facility]) Total Bilirubin 0.6 mg/dL 0.2-1.0 [facility] ([facility]) Aspartate aminotransferase [Enzymatic activity/volume] in Serum or Plasma 40 U/L 15-37 [facility] ([facility] ) Alanine aminotransferase [Enzymatic activity/volume] in Seru m or Plasma 79 U/L 12-78 [facility] ([facility]) Albumin [Mass/volume] in Serum or Plasma 4.0 g/dL 3.4-5.0 [facility] ([facility]) Proteinase 3 Ab [Units/volume] in Serum 7.3 g/dL 6.4-8.2 [facility] ([facility]) A/G Ratio 1.21 CALC 1.00-1.90 [facility]) Direct Bilirubin 0.2 mg/dL 0.0-0.2 [facility] ([facility]) ID Date Data Source [id number] 07/10/2020 03:55:00 PM EST [facility] ([facility]) Name Value Range Interpretation Code Description Data Julissa rce(s) Supporting Document(s) Prostate specific Ag [Mass/volume] in Serum or Plasma Laboratory test result [facility] ID Date Data Source [id number] 07/10/2020 03:54:00 PM EST [facility] ([facility]) Name Value Range Interpretation Code Description Data Julissa rce(s) Supporting Document(s) Cholesterol in HDL [Mass/volume] in Serum or Plasma 91 mg/dL 35-60 [facility] ([facility]) Triglyceride [Mass/volume] in Serum or Plasma 68 mg/dL 30-150 [facility] ([facility]) Cholesterol [Mass/volume] in Serum or Plasma 202 mg/dL 131-200 [facility] ([facility]) Cholesterol in LDL [Mass/volume] in Serum or Plasma by calcu lation 97 CALC 50-159 [facility] ([facility]) ID Date Data Source [id number] 07/10/2020 03:54:00 PM EST [facility] ([facility]) Name Value Range Interpretation Code Description Data Julissa rce(s) Supporting Document(s) Urea nitrogen [Mass/volume] in Serum or Plasma 19 mg/dL 7-18 [facility] ([facility]) Glucose [Mass/volume] in Serum or Plasma 126 mg/dL 74-99 [facility] ([facility]) 100-125 mg/dL PRE-DIABETES/FASTING >126 mg/dL DIABETES/FASTING Potassium [Moles/volume] in Serum or Plasma 4.3 meq/L 3.5-5.1 [facility] ([facility]) Sodium [Moles/volume] in Serum or Plasma 141 meq/L 136-145 [facility] ([facility]) Creatinine 1.1 mg/dL 0.6-1.3 [facility] ([facility]) Calcium [Mass/volume] in Serum or Plasma 9.1 mg/dL 8.5-10.1 [facility] ([facility]) Carbon dioxide, total [Moles/volume] in Serum or Plasma 29 meq/L 21 -32 [facility] ([facility]) Chloride [Moles/volume] in Serum or Plasma 104 meq/L 98-107 [facility] ([facility]) Total Bilirubin 0.7 mg/dL 0.2-1.0 [facility] ([facility]) Alkaline phosphatase isoenzyme [Units/volume] in Serum or Pl asma 79 mg/dL 46-116 [facility] ([facility]) Aspartate aminotransferase [Enzymatic activity/volume] in Serum or Plasma 60 U/L 15-37 [facility] ([facility] ) NOTE: AST,ALT VERIFIED Proteinase 3 Ab [Units/volume] in Serum 7.6 g/dL 6.4-8.2 [facility] ([facility]) Albumin [Mass/volume] in Serum or Plasma 4.1 g/dL 3.4-5.0 [facility] Alanine aminotransferase [Enzymatic activity/volume] in Seru m or Plasma 104 U/L 12- [facility] A/G Ratio 1.17 CALC 1.00-1.90 [facility] Glomerular filtration rate/1.73 sq M pre dicted among blacks [Volume Rate/Area] in Serum or Plasma by Creatinine-based formula (MDRD) Laboratory test result [facility] <content>CHRONIC KIDNEY DISEASE STAGING PER NKF</content>
<content></content>
<content>STAGE I & II GFR >= 60 NORMAL TO MILDLY DECREASED</content>
<content>STAGE III GFR 30-59 MODERATELY DECREASED</content>
<content>STAGE IV GFR 15-29 SEVERELY DECREASED</content>
<content>STAGE V GFR <15 VERY LITTLE GFR LEFT</content>
<content>ESRD GFR <15 ON CORPORATE LEARNING CONSULTANT</content>
<content></content> Glomerular filtration rate/1.73 sq M pre dicted among non-blacks [Volume Rate/Area] in Serum or Plasma by Creatinine-based formula (MDRD) Laboratory test result [facility] ID Date Data Source [id number] 07/10/2020 03:54:00 PM EST [facility] Name Value Range Interpretation Code Description Data Julissa rce(s) Supporting Document(s) Hemoglobin A1c/Hemoglobin.total in Blood 6.5 % [facility] Lab Result Notes: Pre-Diabetes 5.7 - 6.4 % Diabetes = or > 6.5% Glucose mean value [Mass/volume] in Blood Estimated fr om glycated hemoglobin 140 mg/dL 60-110 [facility] ID Date Data Source [id number] 07/10/2020 03:54:00 PM EST [facility] ([facility]) Name Value Range Interpretation Code Description Data Julissa rce(s) Supporting Document(s) Leukocytes [#/volume] in Blood by Automated count 6.0 x10*3/UL 4.1-10 .9 [facility] ([facility]) NOTE: CBC VERIFIED Erythrocytes [#/volume] in Blood by Automated count 4.66 x10*6/UL 4.2 0-6.30 [facility] ([facility]) Hemoglobin [Mass/volume] in Blood 15.7 g/dL 12.0-18.0 [facility] ([facility]) MCV 98.3 fL 80.0-97.0 [facility]) MCH 33.7 pg 26.0-32.0 [facility] ([facility]) Hematocrit [Volume Fraction] of Blood by Automated count 45.8 % 3 7.0-51.0 [facility] ([facility]) MCHC 34.3 g/dL 31.0-38.0 [facility] ([facility]) Platelets [#/volume] in Blood by Automated count 221 x10*3/UL 140-440 [facility] ([facility]) Erythrocyte distribution width [Ratio] by Automated count 12.6 % 11.6-13.7 [facility] ([facility]) MPV 8.4 FL 7.8-11.0 [facility]) Lymph % 11.8 % 10.0-58.5 [facility]) Mid % 14.1 % 1.7-9.3 [facility] ([facility]) Lymph # 0.7 x10*3/UL 0.6-4.1 [facility] ([facility]) Mid # 0.9 x10*3/UL 0.1-0.6 [facility] ([facility]) Neut % 74.1 % 37.0-92.0 [facility]) Neut # 4.4 x10*3/UL 2.0-7.8 [facility] ([facility]) ID Date Data Source [id number] 07/10/2020 03:54:00 PM EST [facility] ([facility]) Name Value Range Interpretation Code Description Data Julissa rce(s) Supporting Document(s) Hemoglobin A1c/Hemoglobin.total in Blood [facility] Procedure Social History Code Duration Value Status Description Data Source(s ) Smoking 01/11/2021 12:00:00 AM EDT Former Cigarette Smoker com pleted Former Cigarette Smoker [facility] ([facility]) Vital Signs ID Date Data Source [id number] Name Value Range Interpretation Code Description Data Source(s) Body height 73 [in_i] 73 [in_i] [facility] 6'1" Systolic blood pressure 130 mm[Hg] 130 mm[Hg] [facility] ([facility]) Diastolic blood pressure 82 mm[Hg] 82 mm[Hg] [facility] ([facility]) Heart rate 75 /min 75 /min [facility]) Body mass index (BMI) [Ratio] 28.0 kg/m2 28.0 k g/m2 [facility] ([facility]) Body weight 96.163 kg 96.163 kg [facility]) Body temperature 97.3 [degF] 97.3 [degF] [facility] ([facility]) Body weight 212.00 [lb_av] 212.00 [lb_av] [facility] ([facility]) Body mass index (BMI) [Ratio] 29.4 kg/m2 29.4 k g/m2 [facility] ([facility]) Systolic blood pressure 140 mm[Hg] 140 mm[Hg] [facility] ([facility]) Diastolic blood pressure 88 mm[Hg] 88 mm[Hg] [facility] ([facility]) Body height 71 [in_i] 71 [in_i] [facility] ([facility]) 5'11" Body weight 211.12 [lb_av] 211.12 [lb_av] [facility] ([facility]) Body height 73.5 [in_i] 73.5 [in_i] [facility] 6'1.50" Body weight 212.00 [lb_av] 212.00 [lb_av] [facility] ([facility] Body weight 96.163 kg 96.163 kg [facility] Body mass index (BMI) [Ratio] 27.6 kg/m2 27.6 k g/m2 [facility] ([facility]) Systolic blood pressure 185 mm[Hg] 185 mm[Hg] [facility] ([facility]) Diastolic blood pressure 148 mm[Hg] 148 mm[Hg] [facility] ([facility]) Heart rate 87 /min 87 /min [facility] Systolic blood pressure 134 mm[Hg] 134 mm[Hg] [facility] ([facility]) Diastolic blood pressure 78 mm[Hg] 78 mm[Hg] [facility] ([facility]) Heart rate 72 /min 72 /min [facility] ([facility]) Body height 71 [in_i] 71 [in_i] [facility] ([facility]) 5'11" Body weight 215.00 [lb_av] 215.00 [lb_av] [facility] ([facility]) Body mass index (BMI) [Ratio] 30.0 kg/m2 30.0 k g/m2 [facility] ([facility])
[2021-05-11] MEDS ORDERED: LIDOCAINE 2% 100MG/5ML SDV (FOR ANES.) As Ordered ONE (11:56)
[2021-05-11] MEDS ORDERED: propofoL 200 MG/20 ML VIAL As Ordered ONE (11:56)
--- NOTE | 2021-05-11 13:32 | ROOR ---
Patient Name: Aureliano Mcdonald Procedure Date: 05/11/2021 1:05 PM Date of : 1950 Age: 71 Room: [facility] Gender: Male Note Status: Finalized Procedure: Total Colonoscopy to Cecum + Cold Snare Polypectomy + Hemoclips Indications: High risk colon cancer surveillance: Personal history of colonic polyps, Last colonoscopy: 2015 Providers: Gilmer Shah MD Referring MD: QUINTON CASTELLANO JR, MD Requesting Provider: Medicines: Monitored Anesthesia Care Complications: No immediate complications. Procedure: Pre-Anesthesia Assessment: - The heart rate, respiratory rate, oxygen saturations, blood pressure, adequacy of pulmonary ventilation, and response to care were monitored throughout the procedure. The Colonoscope was introduced through the anus and advanced to the cecum, identified by appendiceal orifice and ileocecal valve. The colonoscopy was performed without difficulty. The patient tolerated the procedure well. The quality of the bowel preparation was excellent. Findings: The perianal and digital rectal examinations were normal. Non-bleeding internal hemorrhoids were found during retroflexion. The hemorrhoids were small and Grade I (internal hemorrhoids that do not prolapse). Scattered small-mouthed diverticula were found in the recto-sigmoid colon, sigmoid colon and descending colon. Two sessile polyps were found in the mid ascending colon. The polyps were small in size. These polyps were removed with a cold snare. Resection and retrieval were complete. To prevent bleeding after the polypectomy, one hemostatic clip was successfully placed. There was no bleeding at the end of the procedure. The exam was otherwise without abnormality on direct and retroflexion views. Impression: - Non-bleeding internal hemorrhoids. - Diverticulosis in the recto-sigmoid colon, in the sigmoid colon and in the descending colon. - Two small polyps in the mid ascending colon, removed with a cold snare. Resected and retrieved. Clip was placed. - The examination was otherwise normal on direct and retroflexion views. - The exam was otherwise normal to the cecum. Recommendation: - Patient has a contact number available for emergencies. The signs and symptoms of potential delayed complications were discussed with the patient. Return to normal activities tomorrow. Written discharge instructions were provided to the patient. - High fiber diet. - Discharge patient to home. - Continue present medications. - Await pathology results. - Telephone GI clinic for pathology results in 1 week. - Repeat colonoscopy in 5 years for surveillance based on pathology results. - Return to referring physician. - The findings and recommendations were discussed with the patient. Procedure Code(s): --- Professional --- 53689, Colonoscopy, flexible; with removal of tumor(s), polyp(s), or other lesion(s) by snare technique Diagnosis Code(s): --- Professional --- Z86.010, Personal history of colonic polyps K64.0, First degree hemorrhoids K63.5, Polyp of colon K57.30, Diverticulosis of large intestine without perforation or abscess without bleeding CPT copyright 2019 [employer]. All rights reserved. The codes documented in this report are preliminary and upon endoscopy specialty technician review may be revised to meet current compliance requirements. iGlmer Shah MD Gilmer Shah MD 05/11/2021 1:31:52 PM Electronically signed by Gilmer Shah MD Number of Addenda: 0 Note Initiated On: 05/11/2021 1:05 PM Estimated Blood Loss: Estimated blood loss: none.
[2021-05-11 13:50] VITALS: BP 141/84
== END 2021-05-11 14:00 | disposition home or self-care (01) ==
LOC: M OPP 11:15
PROVIDERS: ATTEND Internal Medicine Gastroenterology
DX: Z12.11 Encounter for screening for malignant neoplasm of colon (principal); Z86.010 Personal history of colon polyps; D12.2 Benign neoplasm of ascending colon; K57.30 Diverticulosis of large intestine without perforation or abscess without bleeding; K64.0 First degree hemorrhoids; Z85.46 Personal history of malignant neoplasm of prostate; Z79.82 Long term (current) use of aspirin; Z79.899 Other long term (current) drug therapy; Z88.1 Allergy status to other antibiotic agents; Z87.891 Personal history of nicotine dependence

== ENCOUNTER → 2021-07-18 | Outpatient (CLI) | payer MEDICARE, OTHER ==
[~2021-07-18] MED LIST changes: -NS 1,000 ML IV ONE
== END ==
LOC: M WUC 09:00
PROVIDERS: ATTEND Internal Medicine
DX: M47.816 Spondylosis without myelopathy or radiculopathy, lumbar region (principal); M48.061 Spinal stenosis, lumbar region without neurogenic claudication; M25.78 Osteophyte, vertebrae

== ENCOUNTER → 2022-01-18 | Outpatient (CLI) | payer MEDICARE, OTHER | LOC: M RAD 08:37 | PROVIDERS: ATTEND Neurological Surgery | DX: M43.16 Spondylolisthesis, lumbar region (principal) ==

== ENCOUNTER → 2022-02-21 | Outpatient (CLI) | payer MEDICARE, OTHER | LOC: M LABSMTC 09:18 | PROVIDERS: ATTEND Neurological Surgery | DX: Z01.812 Encounter for preprocedural laboratory examination (principal) ==

== ENCOUNTER → 2024-02-24 | Outpatient (REF) | payer MEDICARE, OTHER ==
[2024-02-24 14:49] LABS: HEPATITIS B SURFACE ANTIGEN NEGATIVE (NEGATIVE)
[2024-02-24 15:10] LABS: HEPATITIS C VIRUS ABY INDEX < 0.02 INDEX (<0.8)
== END ==
LOC: M LAB REF 13:50
PROVIDERS: ATTEND Internal Medicine
DX: K74.00 Hepatic fibrosis, unspecified (principal)